=== PATIENT | female | born 1985 | race Caucasian/White ===

== ENCOUNTER → 2021-07-13 | Outpatient (CLI) | payer OTHER ==
[~2021-07-13] MED LIST: BENTYL 20MG TAB20 MG PO; LODINE CAP 300300 MG PO; PROTONIX40 MG PO; ZOFRAN ODT 4 MG4 MG PO
== END ==
LOC: SLEEP-COR 14:38
DX: R53.83 Other fatigue (principal)
CPT/HCPCS: 95810